=== PATIENT | female | born 1985 | race African-American/Black ===

== ENCOUNTER 2020-12-22 11:39 | Emergency (ER) | payer BC, OTHER ==
[2020-12-22 11:49] VITALS: BP 159/96; PULSE 97; TEMP 99.9; BMI 30.3
[2020-12-22 12:58] LABS: BASO % 0.3 % (0-2.0); EOS % 0.3 % (0-4.5); HEMATOCRIT 33.9 % (32.4-45.2); HEMOGLOBIN 11.2 GM/dL (10.7-15.3); LYMPH % 35.7 % (8-40); MCH 26.4 pg (25.7-33.7); MCHC 33.1 g/dl (32.0-36.0); MEAN PLT VOLUME 8.3 fl (7.5-11.1); MONO % 4.7 % (3.8-10.2); PLATELET COUNT 208 K/MM3 (134-434); RBC 4.23 M/mm3 (3.60-5.2); RDW 13.2 % (11.6-15.6); WHITE BLOOD COUNT 3.9 K/mm3 (4.0-10.0)
[2020-12-22 13:04] LABS: INR 1.07 (0.83-1.09); PROTHROMBIN TIME (PATIENT) 12.9 SEC (9.7-13.0)
[2020-12-22 13:06] LABS: ACTIVATED PTT 30.9 SECONDS (25.2-36.5)
[2020-12-22 13:18] LABS: ALBUMIN 3.3 g/dl (3.4-5.0)
[2020-12-22 13:19] LABS: BLOOD UREA NITROGEN 7.4 mg/dL (7-18)
[2020-12-22 13:22] LABS: CREATININE 0.7 mg/dL (0.55-1.3)
[2020-12-22 13:23] LABS: BILIRUBIN,TOTAL 0.3 mg/dL (0.2-1)
== END 2020-12-22 14:53 | disposition home or self-care (01) ==
LOC: JER 11:39
DX: R06.00 Dyspnea, unspecified (principal)
CPT/HCPCS: 36415; 71275-TC; 80053; 84703; 85025; 85379; 85610; 85730; 99285-25; C9803; Q9967; U0003